=== PATIENT | male | born 1975 | race Caucasian/White ===

== ENCOUNTER → 2017-02-06 | Outpatient (CLI) | payer OTHER ==
--- NOTE | 2017-02-06 12:55 | ECHOF ---
Referral Reason:R06.09 dyspnea MEASUREMENTS -------- HEIGHT: 188.0 cm WEIGHT: 93.9 kg BP: 128/87 RVIDd: 3.3 cm (< 3.3) IVSd: 1.1 cm (0.6 - 1.1) LVIDd: 4.2 cm (3.9 - 5.3) LVPWd: 1.1 cm (0.6 - 1.1) EDV(Teich): 77 ml IVSs: 1.6 cm LVIDs: 3.0 cm LVPWs: 1.5 cm %IVS Thck: 47 % ESV(Teich): 34 ml EF(Teich): 56 % %FS: 29 % SV(Teich): 43 ml LA Diam: 3.3 cm (2.7 - 3.8) LALs A4C: 4.3 cm LAAs A4C: 12.3 cm LAESV A-L A4C: 30 ml LAESV MOD A4C: 28 ml LALs A2C: 5.1 cm LAAs A2C: 16.7 cm LAESV A-L A2C: 47 ml LAESV MOD A2C: 45 ml LAESV(A-L): 41 ml LAESV Index (A-L): 18.38 ml/m Ao Diam: 3.7 cm (2.0 - 3.7) AV Cusp: 2.4 cm (1.5 - 2.6) MV EXCURSION: 21.866 mm (> 18.000) MV EF SLOPE: 97 mm/s (70 - 150) EPSS: 0.5 cm MV E Sude[place]: 0.80 m/s MV DecT: 139 ms MV Dec [place]: 5.8 m/s MV A Sudeep: 0.90 m/s MV E/A Ratio: 0.90 MV PHT: 40 ms E/E': 9.48 E': 0.08 m/s AV Vmax: 1.10 m/s AV maxP.86 mmHg TR Vmax: 2.21 m/s TR maxP.48 mmHg RAP: 5.00 mmHg RVSP: 24.48 mmHg FINDINGS -------- Sinus rhythm. This was a technically good study. The left ventricular size is normal. There is borderline concentric left ventricular hypertrophy. Overall left ventricular systolic function is normal with, an EF between 60 - 65 %. The right ventricle is mildly enlarged. Normal LA size by volume 22+/-6 ml/m2. The right atrium is normal in size. The aortic valve is trileaflet and appears structurally normal. There is trace mitral regurgitation. The tricuspid valve appears structurally normal. There is no pulmonic regurgitation present. The aortic root is dilated measuring 3.7cm. Normal inferior vena cava with normal inspiratory collapse consistent with estimated right atrial pressure of 5 mmHg. There is no pericardial effusion. CONCLUSIONS -------- 1. Sinus rhythm. 2. There is trace mitral regurgitation. 3. The tricuspid valve appears structurally normal. 4. There is no pulmonic regurgitation present. 5. The aortic root is dilated measuring 3.7cm. 6. Normal inferior vena cava with normal inspiratory collapse consistent with estimated right atrial pressure of 5 mmHg. 7. There is no pericardial effusion. 8. This was a technically good study. 9. The left ventricular size is normal. 10. There is borderline concentric left ventricular hypertrophy. 11. Overall left ventricular systolic function is normal with, an EF between 60 - 65 %. 12. The right ventricle is mildly enlarged. 13. Normal LA size by volume 22+/-6 ml/m2. 14. The right atrium is normal in size. 15. The aortic valve is trileaflet and appears structurally normal. PROGRAM DIRECTOR/MUSIC DIRECTOR: Collette Gtz RDCS
--- NOTE | 2017-02-06 15:54 | EST ---
EXERCISE STRESS Date of Service: 02/06/2017 AGE:: 41 SEX:: Male. HT:: 74" WT:: 207 PROTOCOL:: Asa STAGE:: IV DURATION OF EXERCISE:: 10 minutes HEART RATE REST:: 82 BLOOD PRESSURE REST:: 128/87 MAXIMUM HEART RATE ACHIEVED:: 158 MAXIMUM BLOOD PRESSURE:: 183/95 85% MPHR:: 150 100% MPHR:: 177 METS:: 11.7 INDICATIONS:: Dyspnea. CLINICAL INFORMATION:: The test is being done to evaluate cardiac status. STRESS DATA: Baseline EKG showed a sinus rhythm with normal WA interval and QRS duration. Blood pressure at rest is 128/87 with a pulse rate of 82. The test is being done to evaluate symptoms of chest pain and shortness of breath and palpitations. Patient walked on the Asa protocol for 10 minutes achieving a maximum heart rate of 158 with a blood pressure of 183/95. EKGs taken during and after exercise did not reveal any significant changes from the baseline. FINAL IMPRESSION: 1. Negative stress test. 2. Patient did not experience any chest pain. 3. Good exercise capacity. 4. No arrhythmias were detected. MMODL / IJN: [id number] /
== END ==
LOC: RADNMMAIN 10:21
PROVIDERS: ATTEND Family Medicine
DX: R06.09 Other forms of dyspnea (principal)
CPT/HCPCS: 93017; 93306

== ENCOUNTER 2017-05-06 19:08 | Emergency (ER) | payer OTHER ==
[2017-05-06] MEDS ORDERED: ONDANSETRON 4 MG/2 ML VIAL IVP STA (20:01)
[2017-05-06] MEDS ORDERED: SODIUM CHLORIDE 0.9% 1,000 ML IV STA (20:01)
[2017-05-06] MEDS ORDERED: KETOROLAC 30 MG/ML 1 ML VIAL IVP STA (20:01)
[2017-05-06] MEDS ORDERED: HYDROmorphone 1 MG/ML 1 ML SYRINGE IVP STA (20:01)
--- NOTE | 2017-05-06 20:11 | ED ---
General Adult HPI - General Chief complaint: Abdominal Pain Stated complaint: Abd Pain Time Seen by Provider: 05/06/17 19:54 Source: patient, RN notes reviewed Mode of arrival: ambulatory Limitations: no limitations - History of Present Illness Initial comments: 42-year-old male presents to the emergency Department chief complaint of left flank pain. Started suddenly about 5 hours ago. He states that nausea without vomiting. History of kidney stones and states this feels much like this. There is been no cough cold symptoms. There is been no other symptoms with this. He denies any blood in the urine states that there has been no dysuria. He states is exactly like his typical kidney stones. He was concerned due to the symptoms the fact he cannot pain. He should be seen. Patient denies any recent fever, chills, shortness of breath, chest pain, vomiting, numbness or tingling, dysuria or hematuria, constipation or diarrhea, headaches or visual changes, or any other current symptoms. - Related Data Home Medications Medication Instructions Recorded Confirmed Montelukast [Singulair] 10 mg PO HS 01/26/16 05/06/17 Metoprolol Succinate [Toprol XL] 25 mg PO HS 05/06/17 05/06/17 Previous Rx's Medication Instructions Recorded Hydrocodone/Acetaminophen [[place] 1 each PO Q6HR PRN #20 tab 05/06/17 5-325] Ketorolac [Toradol] 10 mg PO Q6HR #20 tab 05/06/17 Ondansetron Odt [Zofran ODT] 4 mg PO Q8HR PRN #20 tab 05/06/17 Tamsulosin [Flomax] 0.4 mg PO DAILY #5 cap 05/06/17 Allergies Allergy/AdvReac Type Severity Reaction Status Date / Time Penicillins Allergy Rash/Hives Verified 05/06/17 20:01 Review of Systems ROS Statement: Those systems with pertinent positive or pertinent negative responses have been documented in the HPI. ROS Other: All systems not noted in ROS Statement are negative. Past Medical History Past Medical History: No Reported History Additional Past Medical History / Comment(s): LEFT THUMB INJURY, History of Any Multi-Drug Resistant Organisms: None Reported Past Surgical History: Appendectomy Additional Past Surgical History / Comment(s): HODA TUBES IN EARS Past Anesthesia/Blood Transfusion Reactions: No Reported Reaction Past Psychological History: No Psychological Hx Reported Smoking Status: Never smoker Past Alcohol Use History: None Reported Past Drug Use History: None Reported General Exam - General Exam Comments Initial Comments: General: The patient is awake and alert, in no distress, and does not appear acutely ill. Eye: Pupils are equal, round and reactive to light. Ears, nose, mouth and throat: There are moist mucous membranes. Neck: The neck is supple, there is no tenderness. Cardiovascular: There is a regular rate and rhythm. No murmur, rub or gallop is appreciated. Respiratory: Lungs are clear to auscultation, respirations are non-labored, breath sounds are equal. No wheezes, stridor, rales, or rhonchi. Gastrointestinal: Soft, non-distended, non-tender abdomen without masses or organomegaly noted. There is no rebound or guarding present. No CVA tenderness. Bowel sounds are unremarkable. Back: There is no tenderness to palpation in the midline. There is no obvious deformity. No rashes noted. Musculoskeletal: Normal ROM, no tenderness, There is no pedal edema. There is no calf tenderness or swelling. Sensation intact. Pulses equal bilaterally 2+. Neurological: CN II-XII intact, There are no obvious motor or sensory deficits. Coordination appears grossly intact. Speech is normal. Skin: Skin is warm and dry and no rashes or lesions are noted. Psychiatric: Cooperative, appropriate mood & affect, normal judgment. Limitations: no limitations Course Vital Signs 05/06/17 05/06/17 19:18 21:28 Temperature 99.0 F 98.4 F Pulse Rate 57 L 78 Respiratory 20 16 Rate Blood Pressure 155/80 124/61 O2 Sat by Pulse 94 L 97 Oximetry Medical Decision Making - Medical Decision Making 42-year-old male presents emergency department with chief complaint of left flank pain. At this time patient does appear to have a calculus in the left ureter. This and we discussed the patient pain medication nausea medication for home. We did discuss follow-up return parameters and all their questions. They stated they understood and management this plan. All questions have been answered. This time they will be discharged. - Lab Data Result diagrams: 05/06/17 20:25 05/06/17 20:25 Lab Results 05/06/17 05/06/17 05/06/17 Range/Units 20:25 20:25 20:25 WBC 11.8 H (3.8-10.6) k/uL RBC 5.36 (4.30-5.90) m/uL Hgb 16.2 (13.0-17.5) gm/dL Hct 47.9 (39.0-53.0) % MCV 89.4 (80.0-100.0) fL MCH 30.2 (25.0-35.0) pg MCHC 33.8 (31.0-37.0) g/dL RDW 14.1 (11.5-15.5) % Plt Count 256 (150-450) k/uL Neutrophils % 81 % Lymphocytes % 11 % Monocytes % 6 % Eosinophils % 1 % Basophils % 1 % Neutrophils # 9.6 H (1.3-7.7) k/uL Lymphocytes # 1.3 (1.0-4.8) k/uL Monocytes # 0.7 (0-1.0) k/uL Eosinophils # 0.1 (0-0.7) k/uL Basophils # 0.1 (0-0.2) k/uL Sodium 142 (137-145) mmol/L Potassium 4.2 (3.5-5.1) mmol/L Chloride 105 (98-107) mmol/L Carbon Dioxide 26 (22-30) mmol/L Anion Gap 11 mmol/L BUN 21 H (9-20) mg/dL Creatinine 1.02 (0.66-1.25) mg/dL Est GFR (MDRD) Af Amer >60 (>60 ml/min/1.73 sqM) Est GFR (MDRD) Non-Af >60 (>60 ml/min/1.73 sqM) Glucose 124 H (74-99) mg/dL Plasma Lactic Acid Jose J 1.9 (0.7-2.0) mmol/L Calcium 10.1 (8.4-10.2) mg/dL Total Bilirubin 0.7 (0.2-1.3) mg/dL AST 23 (17-59) U/L ALT 35 (21-72) U/L Alkaline Phosphatase 76 (38-126) U/L Total Protein 8.3 H (6.3-8.2) g/dL Albumin 4.6 (3.5-5.0) g/dL Amylase 38 (30-110) U/L Lipase 34 (23-300) U/L Urine Color Urine Appearance (Clear) Urine pH (5.0-8.0) Ur Specific [place] (1.001-1.035) Urine Protein (Negative) Urine Glucose (UA) (Negative) Urine Ketones (Negative) Urine Blood (Negative) Urine Nitrite (Negative) Urine Bilirubin (Negative) Urine Urobilinogen (<2.0) mg/dL Ur Leukocyte Esterase (Negative) Urine RBC (0-5) /hpf Urine WBC (0-5) /hpf Ur Squamous Epith Cells (0-4) /hpf Urine Mucus (None) /hpf 05/06/17 Range/Units 21:32 WBC (3.8-10.6) k/uL RBC (4.30-5.90) m/uL Hgb (13.0-17.5) gm/dL Hct (39.0-53.0) % MCV (80.0-100.0) fL MCH (25.0-35.0) pg MCHC (31.0-37.0) g/dL RDW (11.5-15.5) % Plt Count (150-450) k/uL Neutrophils % % Lymphocytes % % Monocytes % % Eosinophils % % Basophils % % Neutrophils # (1.3-7.7) k/uL Lymphocytes # (1.0-4.8) k/uL Monocytes # (0-1.0) k/uL Eosinophils # (0-0.7) k/uL Basophils # (0-0.2) k/uL Sodium (137-145) mmol/L Potassium (3.5-5.1) mmol/L Chloride (98-107) mmol/L Carbon Dioxide (22-30) mmol/L Anion Gap mmol/L BUN (9-20) mg/dL Creatinine (0.66-1.25) mg/dL Est GFR (MDRD) Af Amer (>60 ml/min/1.73 sqM) Est GFR (MDRD) Non-Af (>60 ml/min/1.73 sqM) Glucose (74-99) mg/dL Plasma Lactic Acid Jose J (0.7-2.0) mmol/L Calcium (8.4-10.2) mg/dL Total Bilirubin (0.2-1.3) mg/dL AST (17-59) U/L ALT (21-72) U/L Alkaline Phosphatase (38-126) U/L Total Protein (6.3-8.2) g/dL Albumin (3.5-5.0) g/dL Amylase (30-110) U/L Lipase (23-300) U/L Urine Color Light Red Urine Appearance Clear (Clear) Urine pH 6.0 (5.0-8.0) Ur Specific [place] 1.021 (1.001-1.035) Urine Protein 1+ H (Negative) Urine Glucose (UA) Negative (Negative) Urine Ketones Trace H (Negative) Urine Blood Large H (Negative) Urine Nitrite Negative (Negative) Urine Bilirubin Negative (Negative) Urine Urobilinogen <2.0 (<2.0) mg/dL Ur Leukocyte Esterase Negative (Negative) Urine RBC >182 H (0-5) /hpf Urine WBC 7 H (0-5) /hpf Ur Squamous Epith Cells <1 (0-4) /hpf Urine Mucus Few H (None) /hpf - Radiology Data Radiology results: report reviewed, image reviewed Disposition Clinical Impression: Left ureteral calculus Disposition: HOME SELF-CARE Condition: Stable Instructions: Kidney Stones (ED) Additional Instructions: Please use medication as discussed. Please follow up with family doctor if symptoms have not improved over the next two days. Please return to the emergency room if your symptoms increase or worsen or for any other concerns. Prescriptions: Hydrocodone/Acetaminophen [[place] 5-325] 1 each PO Q6HR PRN #20 tab PRN Reason: Pain Ketorolac [Toradol] 10 mg PO Q6HR #20 tab Ondansetron Odt [Zofran ODT] 4 mg PO Q8HR PRN #20 tab PRN Reason: Nausea Tamsulosin [Flomax] 0.4 mg PO DAILY #5 cap Referrals: Alejandra Hightower DO [Primary Care Provider] - 1-2 days Time of Disposition: 21:58
[2017-05-06] MEDS ORDERED: HYDROmorphone 0.5 MG/0.5 ML SYRINGE IVP STA (20:34)
[2017-05-06 20:40] LABS: Basophils # (A) 0.1 k/uL (0-0.2); Basophils % (A) 1 %; CH 30.4; CHCM 34.2; Eosinophils # (A) 0.1 k/uL (0-0.7); Eosinophils % (A) 1 %; HCT 47.9 % (39.0-53.0); HDW 2.44; HGB 16.2 gm/dL (13.0-17.5); Luc # (Auto) 0.09; Luc % (Auto) 1; Lymphocytes # (A) 1.3 k/uL (1.0-4.8); Lymphocytes % (A) 11 %; MCH 30.2 pg (25.0-35.0); MCHC 33.8 g/dL (31.0-37.0); MCV 89.4 fL (80.0-100.0); Mean Platelet Volume 7.7; Monocytes # (A) 0.7 k/uL (0-1.0); Monocytes % (A) 6 %; Neutrophils # (A) 9.6 k/uL (1.3-7.7); Neutrophils % (A) 81 %; RBC 5.36 m/uL (4.30-5.90); RDW 14.1 % (11.5-15.5); WBC 11.8 k/uL (3.8-10.6); WBC (Perox) 12.03
[2017-05-06 20:54] LABS: ALT 35 U/L (21-72); AST 23 U/L (17-59); Alkaline Phosphatase 76 U/L (38-126); Amylase 38 U/L (30-110); Anion Gap 11 mmol/L; Blood Urea Nitrogen 21 mg/dL (9-20); Calcium 10.1 mg/dL (8.4-10.2); Carbon Dioxide 26 mmol/L (22-30); Chloride 105 mmol/L (98-107); Glucose 124 mg/dL (74-99); Non-African American GFR(MDRD) >60 (>60 ml/min/1.73 sqM); Potassium 4.2 mmol/L (3.5-5.1); Sodium 142 mmol/L (137-145); Total Bilirubin 0.7 mg/dL (0.2-1.3); Total Protein 8.3 g/dL (6.3-8.2)
--- NOTE | 2017-05-06 21:20 | CT ---
EXAMINATION TYPE: CT abdomen pelvis wo con DATE OF EXAM: 05/06/2017 COMPARISON: 01/26/2016 HISTORY: Patient complains of left flank pain and dysuria. Patient has a history of prior stones. CT DLP: 417.4 mGycm Automated exposure control for dose reduction was used. TECHNIQUE: Helical acquisition of images was performed from the lung bases through the pelvis. FINDINGS: The lung bases are clear. There is no pleural effusion. The liver spleen pancreas gallbladder appear normal. Bile ducts are not dilated. There is no adrenal mass. There is a 4 mm calculus in the interpolar right kidney. There is some full ness of the left ureter. There is a 3 mm calcification on image 129 that is probably a small stone in the lower left ureter. There is mild fullness of the left renal pelvis. There is no retroperitoneal adenopathy. I see no intestinal wall thickening. There are no dilated loops. Bladder distends smoothly. There is no pelvic mass. There is no ascites. I see no bony destructive process. There is degenerative disc sp erendira narrowing at L5-S1. Appendix is not seen. IMPRESSION: SMALL RIGHT RENAL CALCULUS. THERE IS CLEARING OF THE STONE IN THE LOWER RIGHT URETER COMPARED TO OLD EXAM. THERE IS NEW MILD LEFT-SIDED HYDRONEPHROSIS AND HYDROURETER AND A TINY STONE IN THE DISTAL LEFT URETER.
[2017-05-06 21:30] VITALS: TEMP 98.4
[2017-05-06 21:50] LABS: Appearance,Urine Clear (Clear); Bilirubin,Urine Negative (Negative); Glucose,Urine (UA) Negative (Negative); Ketones,Urine Trace (Negative); Leukocyte Esterase,Urine Negative (Negative); Mucus,Urine Few /hpf; Nitrite,Urine Negative (Negative); Particle Count 5077; Protein,Urine 1+ (Negative); RBC,Urine >182 /hpf (0-5); Specific Gravity,Urine 1.021 (1.001-1.035); Squamous Epithelial Cell,Urine <1 /hpf (0-4); UA Billing (MACRO vs. MICRO) MICRO; Urobilinogen,Urine <2.0 mg/dL (<2.0); WBC,Urine 7 /hpf (0-5)
[2017-05-06 22:19] VITALS: BP 119/69; PULSE 67; RESP 18
== END 2017-05-06 22:17 | disposition home or self-care (01) ==
LOC: EC 19:08
DX: N20.1 Calculus of ureter (principal); Z79.899 Other long term (current) drug therapy; Z88.0 Allergy status to penicillin; Z90.49 Acquired absence of other specified parts of digestive tract
CPT/HCPCS: 36415; 80053; 82150; 83605; 83690; 85025; 81001; 87040; 87086; 74176; 99284; 96374; 96375 ×2; 96361 ×2; J2405; J1885; J1170

== ENCOUNTER → 2017-05-09 | Outpatient (CLI) | payer OTHER | END | disposition home or self-care (01) | LOC: LABPRL 12:25 | PROVIDERS: ATTEND Physician Assistant Medical | DX: N20.0 Calculus of kidney (principal) | CPT/HCPCS: 82365 ==

== ENCOUNTER 2018-02-23 21:29 | Emergency (ER) | payer OTHER ==
[2018-02-23 21:38] VITALS: RESP 20
--- NOTE | 2018-02-23 23:00 | XR ---
EXAMINATION TYPE: XR hand complete LT DATE OF EXAM: 02/23/2018 COMPARISON: 09/12/2014 HISTORY: Laceration TECHNIQUE: 3 views FINDINGS: I see no fracture nor dislocation. Joint spaces are normal. There are no pathologic calcifi cations. There are small metallic densities at the tip of the distal phalanx of the thumb. There is s ome amputation deformity of the tuft of the distal phalanx of the thumb. 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 No acute bony abnormality. No adverse change compared to old exam.
[2018-02-23] MEDS ORDERED: DIPH,PERTUS(ACELL)TETVAC-LF 0.5 ML VIAL IM ONE (23:04)
--- NOTE | 2018-02-23 23:12 | ED ---
Wound/Laceration HPI - General Source: patient, family, RN notes reviewed Mode of arrival: ambulatory Limitations: no limitations <Eric Shin - Last Filed: 02/23/18 23:08> <Sierra Ford - Last Filed: 02/24/18 22:56> - General Chief Complaint: Wound/Laceration Stated Complaint: thumb lac Time Seen by Provider: 02/23/18 21:45 - History of Present Illness Initial Comments: 43-year-old male presents emergency Department chief complaint of left thumb laceration. Patient states that happened approximately at 4:30 PM today at home. He states he was working a piece of metal cut his thumb. Patient states bleeding continue taking emergency department. Patient is unsure when his last tetanus was. Patient states he has full range of motion. He has had a traumatic injury the past which has altered some sensation and states that he does have some areas of numbness which is normal for him. (Eric Shin) - Related Data Home Medications Medication Instructions Recorded Confirmed Montelukast [Singulair] 10 mg PO HS 01/26/16 02/23/18 Metoprolol Succinate [Toprol XL] 25 mg PO HS 05/06/17 02/23/18 Allergies Allergy/AdvReac Type Severity Reaction Status Date / Time Penicillins Allergy Rash/Hives Verified 02/23/18 23:14 Review of Systems ROS Other: All systems not noted in ROS Statement are negative. <Eric Shin - Last Filed: 02/23/18 23:08> ROS Other: All systems not noted in ROS Statement are negative. <Sierra Ford - Last Filed: 02/24/18 22:56> ROS Statement: Those systems with pertinent positive or pertinent negative responses have been documented in the HPI. Past Medical History Past Medical History: No Reported History Additional Past Medical History / Comment(s): LEFT THUMB INJURY, History of Any Multi-Drug Resistant Organisms: None Reported Past Surgical History: Appendectomy Additional Past Surgical History / Comment(s): HODA TUBES IN EARS Past Anesthesia/Blood Transfusion Reactions: No Reported Reaction Past Psychological History: No Psychological Hx Reported Smoking Status: Never smoker Past Alcohol Use History: None Reported Past Drug Use History: None Reported <Eric Shin - Last Filed: 02/23/18 23:08> General Exam Limitations: no limitations General appearance: alert, in no apparent distress Respiratory exam: Present: normal lung sounds bilaterally. Absent: respiratory distress, wheezes, rales, rhonchi, stridor Cardiovascular Exam: Present: regular rate, normal rhythm, normal heart sounds. Absent: systolic murmur, diastolic murmur, rubs, gallop, clicks Extremities exam: Present: other (Left thumb there is a 1 cm laceration towards the MCP region full range of motion neurovascular intact) <Eric Shin - Last Filed: 02/23/18 23:08> Vital Signs 02/23/18 02/23/18 21:33 23:24 Temperature 98.7 F 98.3 F Pulse Rate 78 68 Respiratory 20 20 Rate Blood Pressure 133/76 122/56 O2 Sat by Pulse 99 99 Oximetry Procedures - Laceration Laceration #1 Consent Obtained: verbal consent Indication: laceration Site: hand (Left first digit) Size (cm): 1 Description: linear Depth: simple, single layer Anesthetic Used: lidocaine 1%, without epi Anesthesia Technique: local infiltration Amount (mls): 4 Pre-repair: wound explored, irrigated extensively, deep structures intact Type of Sutures: nylon Size of Sutures: 4-0 Number of Sutures: 3 Technique: simple, interrupted Patient Tolerated Procedure: well, no complications <Eric Shin - Last Filed: 02/23/18 23:08> Medical Decision Making <Eric Shin - Last Filed: 02/23/18 23:08> <Sierra Ford - Last Filed: 02/24/18 22:56> - Medical Decision Making 43-year-old male present emergency from for left thumb laceration. This was closed using 3 sutures. Patient did have x-ray which showed foreign body though not at the level of the laceration. Patient will be discharged with close follow-up and return parameters were discussed. (Eric Shin) I was available for consultation in the emergency department. The history and physical exam were done by the midlevel provider. I was consulted for this patient's care. I reviewed the case with the midlevel provider and based on their presentation of the patient, I agree with the assessment, medical decision making and plan of care as documented. (Sierra Ford) Disposition Is patient prescribed a controlled substance at d/c from ED?: No Time of Disposition: 23:11 <Eric Shin - Last Filed: 02/23/18 23:08> <Sierra Ford - Last Filed: 02/24/18 22:56> Clinical Impression: Laceration of left thumb Disposition: HOME SELF-CARE Condition: Stable Instructions: Care For Your Stitches (ED), Finger Laceration (ED) Additional Instructions: Please return to the Emergency Department if symptoms worsen or any other concerns. Have sutures removed in 10 days. Referrals: Alejandra Hightower DO [Primary Care Provider] - 1-2 days
[2018-02-23 23:25] VITALS: BP 122/56; PULSE 68; TEMP 98.3
== END 2018-02-23 23:25 | disposition home or self-care (01) ==
LOC: EC 21:29
DX: S61.012A Laceration without foreign body of left thumb without damage to nail, initial encounter (principal); Z23 Encounter for immunization; Z79.899 Other long term (current) drug therapy; Z88.0 Allergy status to penicillin; W45.8XXA Other foreign body or object entering through skin, initial encounter; Y93.89 Activity, other specified
CPT/HCPCS: 12001; 90471; 90715; 99283

== ENCOUNTER 2018-07-27 16:15 | Emergency (ER) | payer OTHER ==
[2018-07-27 18:52] LABS: Basophils % (A) 0 %; Eosinophils # (A) 0.1 k/uL (0-0.7); Eosinophils % (A) 1 %; HCT 48.3 % (39.0-53.0); HGB 16.1 gm/dL (13.0-17.5); Lymphocytes # (A) 0.9 k/uL (1.0-4.8); Lymphocytes % (A) 9 %; MCH 30.3 pg (25.0-35.0); MCHC 33.3 g/dL (31.0-37.0); MCV 90.8 fL (80.0-100.0); Mean Platelet Volume 7.4; Monocytes # (A) 0.7 k/uL (0-1.0); Monocytes % (A) 6 %; Neutrophils # (A) 8.8 k/uL (1.3-7.7); Neutrophils % (A) 84 %; Platelet Count 205 k/uL (150-450); RBC 5.32 m/uL (4.30-5.90); RDW 12.8 % (11.5-15.5); WBC 10.5 k/uL (3.8-10.6)
[2018-07-27 18:55] LABS: Appearance,Urine Clear (Clear); Bacteria,Urine Rare /hpf; Bilirubin,Urine Negative (Negative); Blood,Urine Moderate (Negative); Color,Urine Yellow; Glucose,Urine (UA) Negative (Negative); Ketones,Urine Negative (Negative); Leukocyte Esterase,Urine Negative (Negative); Mucus,Urine Many /hpf; Nitrite,Urine Negative (Negative); PH, Urine 5.5 (5.0-8.0); Protein,Urine Trace (Negative); RBC,Urine 89 /hpf (0-5); Specific Gravity,Urine 1.015 (1.001-1.035); Squamous Epithelial Cell,Urine <1 /hpf (0-4); Urobilinogen,Urine <2.0 mg/dL (<2.0); WBC,Urine 4 /hpf (0-5)
[2018-07-27 19:01] LABS: Albumin 4.2 g/dL (3.5-5.0); Calcium 9.7 mg/dL (8.4-10.2); Potassium 4.5 mmol/L (3.5-5.1); Total Protein 7.6 g/dL (6.3-8.2)
[2018-07-27] MEDS ORDERED: SODIUM CHLORIDE 0.9% 1,000 ML IV ONE (19:03)
[2018-07-27] MEDS ORDERED: HYDROmorphone 0.5 MG/0.5 ML SYRINGE IVP STA (19:03)
[2018-07-27] MEDS ORDERED: KETOROLAC 30 MG/ML 1 ML VIAL IVP STA (19:03)
[2018-07-27] MEDS ORDERED: ONDANSETRON 4 MG/2 ML VIAL IVP STA (19:03)
--- NOTE | 2018-07-27 19:07 | ED ---
General Adult HPI - General Chief complaint: Urogenital Stated complaint: Kidney stones Time Seen by Provider: 07/27/18 18:58 Source: patient Mode of arrival: ambulatory Limitations: no limitations - History of Present Illness Initial comments: 43-year-old male patient presents to the emergency department today for evaluation of right flank pain. Patient states feels similar to when he had kidney stones in the past. Patient states that his urine seemed to be thicker than usual so it concerned him he presented here for further evaluation. Patient states he did take Flomax and pain medicine from his previous kidney stone at home, did help somewhat. States that he is having pain currently at a 6 out of 10 on the pain scale. Describes a sharp stabbing pain to the right flank. States he is nauseated but has not vomited. Denies any fevers or chills with this. States he has had appendectomy in the past and no other abdominal surgeries. Denies fevers or chills. Patient denies any recent rash, shortness breath, chest pain, diarrhea, constipation, back pain, numbness, tingling, dizziness, weakness, headache, visual changes, or any other complaints. - Related Data Home Medications Medication Instructions Recorded Confirmed Montelukast [Singulair] 10 mg PO HS 01/26/16 07/27/18 Metoprolol Succinate [Toprol XL] 25 mg PO HS 05/06/17 07/27/18 Ketorolac [Toradol] 10 mg PO ONCE PRN 07/27/18 07/27/18 Tamsulosin [Flomax] 0.4 mg PO ONCE 07/27/18 07/27/18 Previous Rx's Medication Instructions Recorded Hydrocodone/Acetaminophen [Amalia 1 tab PO Q6HR PRN #12 tab 07/27/18 5-325] Ondansetron [Zofran ODT] 4 mg PO Q8HR PRN #10 tab 07/27/18 Tamsulosin HCl [Flomax] 0.4 mg PO DAILY #7 cap 07/27/18 Allergies Allergy/AdvReac Type Severity Reaction Status Date / Time Penicillins Allergy Rash/Hives Verified 07/27/18 19:06 Review of Systems ROS Statement: Those systems with pertinent positive or pertinent negative responses have been documented in the HPI. ROS Other: All systems not noted in ROS Statement are negative. Past Medical History Past Medical History: No Reported History Additional Past Medical History / Comment(s): LEFT THUMB INJURY, History of Any Multi-Drug Resistant Organisms: None Reported Past Surgical History: Appendectomy Additional Past Surgical History / Comment(s): HODA TUBES IN EARS Past Anesthesia/Blood Transfusion Reactions: No Reported Reaction Past Psychological History: No Psychological Hx Reported Smoking Status: Never smoker Past Alcohol Use History: None Reported Past Drug Use History: None Reported General Exam Limitations: no limitations General appearance: alert, in no apparent distress, other (Social well-developed , well-nourished adult male patient in no acute distress. Vital signs upon presentation are temperature 98.5F, pulse 96, respirations 18, blood pressure 143/78, pulse ox 100% on room air.) Eye exam: Present: normal appearance, PERRL, EOMI. Absent: scleral icterus, conjunctival injection, periorbital swelling ENT exam: Present: normal exam, normal oropharynx, mucous membranes moist Respiratory exam: Present: normal lung sounds bilaterally. Absent: respiratory distress, wheezes, rales, rhonchi, stridor Cardiovascular Exam: Present: regular rate, normal rhythm, normal heart sounds. Absent: systolic murmur, diastolic murmur, rubs, gallop, clicks GI/Abdominal exam: Present: soft, normal bowel sounds. Absent: distended, tenderness, guarding, rebound, rigid Back exam: Present: normal inspection, CVA tenderness (R). Absent: CVA tenderness (L) Neurological exam: Present: alert, oriented X3, CN II-XII intact Psychiatric exam: Present: normal affect, normal mood Skin exam: Present: warm, dry, intact, normal color. Absent: rash Course Vital Signs 07/27/18 17:31 Temperature 98.5 F Pulse Rate 96 Respiratory 18 Rate Blood Pressure 143/78 O2 Sat by Pulse 100 Oximetry Medical Decision Making - Medical Decision Making 43-year-old male patient with past medical history significant for kidney stones presents to the emergency department today for evaluation of right flank pain. Physical examination did reveal some right CVA tenderness. Labs reviewed and did reveal mild elevation in BUN and creatinine. Urinalysis showed gross and microscopic blood. KUB x-ray was unremarkable. Patient has had CT abdomen and pelvis in the past showing multiple renal stones. Patient was given pain medication and IV fluids here in the department. Did discuss findings and results with the patient. Symptoms are consistent with kidney stone. He'll be discharged home to follow-up with his primary care physician and urology. He is instructed have repeat kidney function performed. He is instructed to increase fluids. He'll be given prescription for Amalia, Flomax, and Zofran. We will withhold NSAIDs at this time due to kidney function. Return parameters were discussed in detail. He verbalizes understanding and agrees with this plan. - Lab Data Result diagrams: 07/27/18 18:32 07/27/18 18:32 Lab Results 07/27/18 07/27/18 07/27/18 Range/Units 18:32 18:32 18:32 WBC 10.5 (3.8-10.6) k/uL RBC 5.32 (4.30-5.90) m/uL Hgb 16.1 (13.0-17.5) gm/dL Hct 48.3 (39.0-53.0) % MCV 90.8 (80.0-100.0) fL MCH 30.3 (25.0-35.0) pg MCHC 33.3 (31.0-37.0) g/dL RDW 12.8 (11.5-15.5) % Plt Count 205 (150-450) k/uL Neutrophils % 84 % Lymphocytes % 9 % Monocytes % 6 % Eosinophils % 1 % Basophils % 0 % Neutrophils # 8.8 H (1.3-7.7) k/uL Lymphocytes # 0.9 L (1.0-4.8) k/uL Monocytes # 0.7 (0-1.0) k/uL Eosinophils # 0.1 (0-0.7) k/uL Basophils # 0.0 (0-0.2) k/uL Sodium 138 (137-145) mmol/L Potassium 4.5 (3.5-5.1) mmol/L Chloride 103 (98-107) mmol/L Carbon Dioxide 27 (22-30) mmol/L Anion Gap 8 mmol/L BUN 24 H (9-20) mg/dL Creatinine 1.27 H (0.66-1.25) mg/dL Est GFR (CKD-EPI)AfAm 78 (>60 ml/min/1.73 sqM) Est GFR (CKD-EPI)NonAf 68 (>60 ml/min/1.73 sqM) Glucose 106 H (74-99) mg/dL Calcium 9.7 (8.4-10.2) mg/dL Total Bilirubin 1.0 (0.2-1.3) mg/dL AST 23 (17-59) U/L ALT 37 (21-72) U/L Alkaline Phosphatase 71 (38-126) U/L Total Protein 7.6 (6.3-8.2) g/dL Albumin 4.2 (3.5-5.0) g/dL Urine Color Yellow Urine Appearance Clear (Clear) Urine pH 5.5 (5.0-8.0) Ur Specific [place] 1.015 (1.001-1.035) Urine Protein Trace H (Negative) Urine Glucose (UA) Negative (Negative) Urine Ketones Negative (Negative) Urine Blood Moderate H (Negative) Urine Nitrite Negative (Negative) Urine Bilirubin Negative (Negative) Urine Urobilinogen <2.0 (<2.0) mg/dL Ur Leukocyte Esterase Negative (Negative) Urine RBC 89 H (0-5) /hpf Urine WBC 4 (0-5) /hpf Ur Squamous Epith Cells <1 (0-4) /hpf Urine Bacteria Rare H (None) /hpf Urine Mucus Many H (None) /hpf - Radiology Data Radiology results: report reviewed, image reviewed KUB x-ray of the abdomen is obtained. Report was reviewed in its entirety. Impression by Dr. Urbina shows nonacute abdomen. No change. Disposition Clinical Impression: Kidney stone on right side, Acute kidney injury Disposition: HOME SELF-CARE Condition: Good Instructions (If sedation given, give patient instructions): Acute Kidney Injury (DC), Kidney Stones (ED), How to Strain Your Urine (ED) Additional Instructions: Increase fluids. Take medications as directed. Follow-up with your primary care physician for recheck in 1-2 days. Have kidney function rechecked. Follow- up with urology for recheck as needed. Return to the emergency department immediately for any new, worsening, or concerning symptoms. Prescriptions: Hydrocodone/Acetaminophen [Amalia 5-325] 1 tab PO Q6HR PRN #12 tab PRN Reason: Pain Ondansetron [Zofran ODT] 4 mg PO Q8HR PRN #10 tab PRN Reason: Nausea Tamsulosin HCl [Flomax] 0.4 mg PO DAILY #7 cap Is patient prescribed a controlled substance at d/c from ED?: No Referrals: Aljeandra Hightower DO [Primary Care Provider] - 1-2 days Santo Rodríguez MD [STAFF PHYSICIAN] - 1-2 days Time of Disposition: 19:57
--- NOTE | 2018-07-27 19:46 | XR ---
Abdomen single view. History flank pain. Comparison 01/26/2016. FINDINGS: 2 views upright were obtained. Bowel gas pattern is normal. There is no sign of intestinal obstructio n or pneumoperitoneum. There are no pathologic calcifications over the kidneys. Fecal pattern is norm al. Lung bases are clear. IMPRESSION: Nonacute abdomen. No change.
[2018-07-27 20:32] VITALS: BP 128/83; PULSE 68; RESP 16; TEMP 98.3
== END 2018-07-27 20:43 | disposition home or self-care (01) ==
LOC: EC 16:15
DX: N17.9 Acute kidney failure, unspecified (principal); N20.0 Calculus of kidney; Z79.899 Other long term (current) drug therapy; Z88.0 Allergy status to penicillin; Z90.89 Acquired absence of other organs
CPT/HCPCS: 36415; 80053; 85025; 81001; 87086; 74018; 99284; 96374; 96375 ×2; 96361; J2405; J1885; J1170

== ENCOUNTER → 2018-08-13 | Outpatient (CLI) | payer OTHER ==
--- NOTE | 2018-08-17 18:49 | CT ---
EXAMINATION TYPE: CT abdomen pelvis wo con DATE OF EXAM: 08/13/2018 COMPARISON: 05/06/2017 HISTORY: 43-year-old male Right flank pain, history of stones. CT DLP: 591.5 mGycm. Automated exposure control for dose reduction was used. TECHNIQUE: Contiguous axial scanning of the abdomen and pelvis without IV contrast. Coronal and sagit naif reconstructions performed. FINDINGS: Heart normal size without pericardial effusion. 5 mm right middle lobe pulmonary nodule, axial image 2 is unchanged from 01/26/2016 compatible with a benign etiology. Lung bases otherwise clear without p leural effusion. A few scattered subcentimeter hypodense lesions in the liver inadequately characterized, likely small benign cysts. Gallbladder, adrenal glands, spleen, and pancreas show no gross abnormality by noncontrast CT. Punctate 1 to 2 mm nonobstructive left renal calculus. Vague cortical hypodensity lower pole right ki dney, axial image 75 was present previously suggesting an underlying benign cyst. There is very mild fullness to the right renal collecting system with the previously seen 4 mm right renal calculus now located in the distal right ureter. No dilated small bowel, free fluid, or free air. No mesenteric or retroperitoneal lymphadenopathy. Mild overall stool burden. No pericolonic inflammatory change. Bladder is nondistended. Pelvic phleboliths. Prostate gland measures 4.5 cm wide. No abnormal fluid c ollection in the pelvis or pelvic lymphadenopathy. Bones: Scattered benign bone island in the pelvis. Moderate to advanced degenerative disc disease L5- S1. Bulging disks mid to lower lumbar spine. Facet arthropathy lower lumbar spine. IMPRESSION: 1. A 5 mm distal right ureteral calculus without significant hydronephrosis. 2. Punctate 1 to 2 mm nonobstructive left renal calculus. 3. Mild prostatomegaly (4.5 cm wide).
== END | disposition home or self-care (01) ==
LOC: RADCTMAIN 15:50
PROVIDERS: ATTEND Nurse Practitioner Family
DX: N20.2 Calculus of kidney with calculus of ureter (principal); N40.0 Benign prostatic hyperplasia without lower urinary tract symptoms
CPT/HCPCS: 74176

== ENCOUNTER → 2021-05-01 | Outpatient (CLI) | payer OTHER ==
--- NOTE | 2021-05-01 16:25 | MR ---
EXAMINATION TYPE: MR lumbar spine wo con DATE OF EXAM: 05/01/2021 COMPARISON: CT 08/13/2018 HISTORY: Low back pain TECHNIQUE: Multiplanar, multisequence images of the lumbar spine were acquired without IV contrast. L1-L2: Normal disc appearance without desiccation. No herniation, protrusion or disc bulging. No ca nal stenosis is present. Foramina are patent bilaterally. L2-L3: Normal disc appearance without desiccation. No herniation, protrusion or disc bulging. No ca nal stenosis is present. Foramina are patent bilaterally. L3-L4: Normal disc appearance without desiccation. No herniation, protrusion or disc bulging. No ca nal stenosis is present. Foramina are patent bilaterally. L4-L5: Posterior broad-based disc bulge causes mild anterior mass effect on the thecal sac. There is some facet arthropathy change. Circumferential extension endplate disc complex encroaches minimally o n the inferior aspect of the neural foramen greater on the right than on the left L5-S1: There is some facet arthropathy changes. Circumferential extension of endplate disc complex re sults in bilateral foraminal encroachment. Posterior extension endplate disc complex may possibly con tact the proximal S1 nerve root right greater than left Lumbar segments are intact. No paraspinal masses are identified. Conus medullaris has a normal appe arance. Lumbar vertebral bodies show preserved height and alignment. There is no significant spinal s tenosis. There is endplate discogenic marrow signal change, loss of disc height signal is greatest at L5-S1. IMPRESSION: Degenerative disc disease and facet arthropathy as described with foraminal encroachment.
== END | disposition home or self-care (01) ==
LOC: RADMRIMAIN 15:11
PROVIDERS: ATTEND Orthopaedic Surgery
DX: M51.36 Other intervertebral disc degeneration, lumbar region (principal); M46.96 Unspecified inflammatory spondylopathy, lumbar region
CPT/HCPCS: 72148

== ENCOUNTER → 2022-09-16 | Outpatient (CLI) | payer OTHER ==
[2022-09-16 10:44] VITALS: BP 135/96; PULSE 89; RESP 18; TEMP 98.1
--- NOTE | 2022-09-16 16:28 | P.PAINPG ---
PQRS Measure Charge Sheet Comment: HISTORY OF PRESENT ILLNESS: 47 yr old male w at side as a referral from Dr Gramajo presents today w severe and chronic LBP for years secondary to DDD, spondylosis and facet arthropathy without myelopathy for evaluation. Pt states pain level is provoked at 6 /10 in intensity, constant, localized in the R lower lumbar spine, sore in character w shooting pain towards the BLEs. Pain is provoked by sitting for periods of 30 min or more, bending lifting. Pain is alleviated by medications (Aleve, Celebrex), physician guided home exercise regimen as directed by Dr Gramajo for the past year which he is currently doing, heated belt use, repositioning and rest. PMH: No Reported History PSH: Appendectomy, BL Ear Tubes SH: Negative x 3 FH: Non contributory All: See list Meds: See list REVIEW OF ORGAN SYSTEMS: CONSTITUTIONAL: No fevers or chills. No recent weight loss. NEUROLOGICAL: + numbness and tingling along the distal extremities. No seizure disorders or headaches. MUSCULOSKELETAL: + pain PSYCHIATRIC: Denies current depression or suicidal thoughts. Physical Examinations : Constitutional : Cooperative , not in acute distress . Neurologic : Cranial nerve II to XII intact. No focal neurological deficits. Psychiatric : alert & oriented x 3. Matching mood & appropriate affect. Judgment & insight intact. Musculoskeletal : Cervical Spine Motor strength in the deltoid and biceps: Normal right side. Normal Left side Motor strength biceps and the wrist extensors: Normal right side . Normal left side Motor strength in the triceps muscle: Normal right side. Normal left side Deep tendon reflexes: Normal at the biceps. Normal at Brachioradialis. Normal at triceps Vertebral body tenderness to deep palpation over Cervical facet loading test: positive bilaterally Spurling test: positive bilaterally Neck distraction test: positive bilaterally Katherine sign: positive bilaterally Lumbar spine Motor strength lower extremities ,thigh and legs 5/5 Right side , 5/5 Left side Deep tendon reflexes : Normal Knee Jerk. Normal Ankle Jerk Vertebral body tenderness over L5 Lumbar facet Loading Test: positive Right / positive Left Range of motion of the lumbar spine Flexion 30 degrees, extension 10 degrees Straight Leg Raise test: Left/ Right positive at degree Jayson test: positive right / positive left. Severe tenderness over the Sacroiliac joint on the Right / Left sides Gaenslen test: positive bilaterally Seated flexion test: positive bilaterally. Sacral spine : Severe tenderness over the Sacroiliac joint: right side / left side Range of motion: Flexion of the lumbar spine <60 degrees Range of motion: Extension of the lumbar spine <20 degrees Gaenslen's Test positive Derek's Test positive Jayson test: positive right side / left side Thigh Thrust Test Sacral Thrust Test Imaging: MRI without contrast of the lumbar spine from 05/01/21 reviewed Assessment/ Plan : Lumbar DDD Recommendation of LEILA L5-S1. May need a series of injections for optimal pain relief. Risks, benefits of procedure discussed and patient verbalized understanding. Admits to aspirin or anti- coagulant use or medical history of diabetes. Protocol for discontinuation/ continuation of medications robin procedure discussed. All questions answered. I have spent greater than 30 minutes on patient care today. Dr Tang was available by phone for the evaluation of this patient. The time was used to review the medical records including relevant urine studies and Prescription history (MAPs), review of the available imaging, evaluation and examination of the patient, coordination of care with the medical staff and if applicable referring physicians, as well as creation of the medical record PQRS Narrative: Smoking Status Never smoker Home Medications: Ambulatory Orders Montelukast [Singulair] 10 mg PO HS 01/26/16 Metoprolol Succinate [Toprol XL] 25 mg PO HS 05/06/17 Hydrocodone/Acetaminophen [[place] 5-325] 1 tab PO Q6HR PRN #12 tab 07/27/18 Ketorolac [Toradol] 10 mg PO ONCE PRN 07/27/18 Ondansetron [Zofran ODT] 4 mg PO Q8HR PRN #10 tab 07/27/18 Tamsulosin HCl [Flomax] 0.4 mg PO DAILY #7 cap 07/27/18 Tamsulosin [Flomax] 0.4 mg PO ONCE 07/27/18 Controlled Substance Measures - Controlled Substance Measures Is patient prescribed a controlled substance at discharge?: No
== END ==
LOC: PNWHC3 10:06
PROVIDERS: ATTEND Specialist
DX: M51.16 Intervertebral disc disorders with radiculopathy, lumbar region (principal); M47.26 Other spondylosis with radiculopathy, lumbar region; M48.061 Spinal stenosis, lumbar region without neurogenic claudication; Z88.0 Allergy status to penicillin
CPT/HCPCS: 99211

== ENCOUNTER 2023-06-14 13:00 | Emergency (ER) | payer OTHER ==
[2023-06-14 13:36] VITALS: RESP 18
--- NOTE | 2023-06-14 13:42 | ED ---
General Adult HPI - General Source: patient Mode of arrival: ambulatory Limitations: no limitations <Ady Reza - Last Filed: 06/14/23 16:30> - General Source: RN notes reviewed <Katelyn Lynch - Last Filed: 06/16/23 00:14> - General Chief complaint: Recheck/Abnormal Lab/Rx Stated complaint: Hemroid Bleeding, Sent by PCP - History of Present Illness Initial comments: Quick note: patient states he developed diarrhea on but on Friday he developed a hemorrhoid the size of a walnut. Patient states every time he goes to the bathroom it bleeds. He has tried Prep H and taken showers. He can't get it to go down. Verbally signed by Ady Reza PAC 06/14/22 1630 (Ady Reza) Note reviewed: This is a pleasant 48-year-old male with no significant past medical history who presents to the emergency department with a chief complaint of rectal pain. Patient reports that he has had BOUTS OF DIARRHEA 3 DAYS AGO. SHE REPORTS RESOLUTION OF DIARRHEA HOWEVER SHE HAS HAD INCREASED RECTAL PAIN. HE DOES DESCRIBE HAVING A RECTAL MASS THAT IS THE SIZE OF A WALNUT. HE REPORTS THAT EVERY TIME HE GOES TO THE BATHROOM HE WILL HAVE BLOOD IN THE TOILET BOWL AND IS CLINICALLY CLEAR. SHE HAS BEEN TRYING PREPARATION H INTAKE AND WAS EXCISED WITHOUT SYMPTOMATIC IMPROVEMENT. HE DENIES ANY KNOWN POSES A SENSATION OF PRECEDING EVENTS. HE DENIES ANY FEVERS, CHILLS. HE'S NEVER HAD THIS HAPPEN BEFORE. HE REPORTS THAT HE ATTEMPTED TO SEE HIS PCP REGARDING THIS HOWEVER THEY REFERRED HIM TO THE EMERGENCY DEPARTMENT. (Katelyn Lynch) - Related Data Home Medications Medication Instructions Recorded Confirmed Montelukast [Singulair] 10 mg PO HS 01/26/16 09/16/22 Metoprolol Succinate [Toprol XL] 25 mg PO HS 05/06/17 09/16/22 Ketorolac [Toradol] 10 mg PO ONCE PRN 07/27/18 09/16/22 Tamsulosin [Flomax] 0.4 mg PO ONCE 07/27/18 09/16/22 Previous Rx's Medication Instructions Recorded Hydrocodone/Acetaminophen [[place] 1 tab PO Q6HR PRN #12 tab 07/27/18 5-325] Ondansetron [Zofran ODT] 4 mg PO Q8HR PRN #10 tab 07/27/18 Tamsulosin HCl [Flomax] 0.4 mg PO DAILY #7 cap 07/27/18 Allergies Allergy/AdvReac Type Severity Reaction Status Date / Time Penicillins Allergy Rash/Hives Verified 06/14/23 13:32 Review of Systems ROS Other: All systems not noted in ROS Statement are negative. <Ady Reza - Last Filed: 06/14/23 16:30> ROS Other: All systems not noted in ROS Statement are negative. <Katelyn Lynch - Last Filed: 06/16/23 00:14> ROS Statement: Those systems with pertinent positive or pertinent negative responses have been documented in the HPI. Past Medical History Past Medical History: No Reported History Additional Past Medical History / Comment(s): LEFT THUMB INJURY, History of Any Multi-Drug Resistant Organisms: None Reported Past Surgical History: Appendectomy Additional Past Surgical History / Comment(s): HODA TUBES IN EARS Past Anesthesia/Blood Transfusion Reactions: No Reported Reaction Past Psychological History: No Psychological Hx Reported Smoking Status: Never smoker Past Alcohol Use History: None Reported Past Drug Use History: None Reported <Ady Reza - Last Filed: 06/14/23 16:30> General Exam Limitations: no limitations <Ady Reza - Last Filed: 06/14/23 16:30> <Katelyn Lynch - Last Filed: 06/16/23 00:14> - General Exam Comments Initial Comments: visual physical exam: well appearing, does appear to be in mild pain. (Ady Reza) General: Alert, in no acute distress Head: atraumatic normocephalic. Eyes PERRL, EOMI intact, mucous membranes moist Respiratory: Lungs clear to auscultation bilaterally Cardiovascular: Heart rate regular rate and rhythm Ractal: 3 cm protruding tissue with purulent discharge to right side of rectum. Markedly tender. No evidence of gross blood in the rectal vault Abdominal: Soft without guarding or rebound Extremities: Normal inspection with full range of motion and normal capillary refill Neuroogic: alert and oriented 3, CN II-XII intact, able to ambulate with steady gait Skin: warm dry and intact with normal color (Katelyn Lynch) Course <Katelyn Lynch - Last Filed: 06/16/23 00:14> Vital Signs 06/14/23 06/14/23 06/14/23 13:29 17:20 18:34 Temperature 98.4 F 98.9 F 98.7 F Pulse Rate 82 68 72 Respiratory 18 18 18 Rate Blood Pressure 128/65 138/72 134/81 O2 Sat by Pulse 97 96 97 Oximetry - Reevaluation(s) Reevaluation #1: 06/14/23 18:10 reevaluatedon results. Agreeable to plan for a consult to admit. He is agreeable [facility] to lack of GI coverage at this facility ([facility]) Reevaluation #2: 06/14/23 18:44 Case is discussed with [facility] who is currently on diversion due to high patient census. Patient is agreeale to the plan for transfer to [facility] ([facility]) Medical Decision Making - Lab Data Result diagrams: 06/14/23 15:44 06/14/23 15:44 <Ady Reza - Last Filed: 06/14/23 16:30> - Lab Data Result diagrams: 06/14/23 15:44 06/14/23 15:44 <Katelyn Lynch - Last Filed: 06/16/23 00:14> - Medical Decision Making Was pt. sent in by a medical professional or institution (AMADOR Becker, ADVICE NURSE, urgent care, hospital, or longterm...) When possible be specific @ -[No] Did you speak to anyone other than the patient for history (EMS, parent, family, police, friend...)? What history was obtained from this source @ -[No] Did you review nursing and triage notes (agree or disagree)? Why? @ -[I reviewed and agree with nursing and triage notes] Were old charts reviewed (outside hosp., previous admission, EMS record, old EKG, old radiological studies, urgent care reports/EKG's, longterm records)? Report findings @ -[No old charts were reviewed] Differential Diagnosis (chest pain, altered mental status, abdominal pain women, abdominal pain men, vaginal bleeding, weakness, fever, dyspnea, syncope, headache, dizziness, GI bleed, back pain, seizure, CVA, palpatations, mental health, musculoskeletal)? @ -[not applicable] EKG interpreted by me (3pts min.). @ -[As above] X-rays interpreted by me (1pt min.). @ -[None done] CT interpreted by me (1pt min.). @ CT reveals mild wall thickening to the rectal and sigmoid colon no evidence of perianal abscess U/S interpreted by me (1pt. min.). @ -[None done] What testing was considered but not performed or refused? (CT, X-rays, U/S, labs)? Why? @ -[None] What meds were considered but not given or refused? Why? @ -[None] Did you discuss the management of the patient with other professionals (professionals i.e. , PA, ADVICE NURSE, lab, RT, psych nurse, secondary social studies teacher, general assignment reporter, teacher, correctional probation officer, caser)? Give summary @ -Dictated to transfer patient to [facility] however they are on diversion due to high volumes Case is discussed with Dr. Vasquez, ED attending at [facility] who agrees and accepts the patient for ER to ER transfer Was smoking cessation discussed for >3mins.? @ -[No] Was critical care preformed (if so, how long)? @ -[No] Were there social determinants of health that impacted care today? How? (Homelessness, low income, unemployed, alcoholism, drug addiction, transportation, low edu. Level, literacy, decrease access to med. care, care home, rehab)? @ -[No] Was there de-escalation of care discussed even if they declined (Discuss DNR or withdrawal of care, Hospice)? DNR status @ -[No] What co-morbidities impacted this encounter? (DM, HTN, Smoking, COPD, CAD, Cancer, CVA, ARF, Chemo, Hep., AIDS, mental health diagnosis, sleep apnea, morbid obesity)? @ -[None] Was patient admitted / discharged? Hospital course, mention meds given and route, prescriptions, significant lab abnormalities, going to OR and other pertinent info. @ -Transfer to [facility]. This is a pleasant 48-year-old male who presents emergency Department with rectal pain. Patient afebrile. He is nontoxic and non-ill appearing. Rectal exam reveals Centimeter Erythematous Protrusion with Purulent Discharge. It Is Markedly Tender. It Does Not Appear to Be Tissue That I Can Reduce. Patient Had Laboratory Studies Which Were Unremarkable. CT Reveals Mild Colorectal Wall Thickening. I Discussed Results in Detail with the Patient Verbalized Understanding and Agreeable with the Plan for Transfer. Patient Will Be Transferred to [facility] for Further Evaluation and GI Management. Patient Transferred in Stable Condition via [facility]. Case Is Discussed with Dr. Alatorre, ED Attending Who Agrees with Plan. Undiagnosed new problem with uncertain prognosis? @ -[No] Drug Therapy requiring intensive monitoring for toxicity (Heparin, Nitro, Insulin, Cardizem)? @ -[No] Were any procedures done? @ -[No] Diagnosis/symptom? @ -Rectal Pain vs. Proctitis Acute, or Chronic, or Acute on Chronic? @ -Acute Uncomplicated (without systemic symptoms) or Complicated (systemic symptoms)? @ -Uncomplicated Side effects of treatment? @ -[No] Exacerbation, Progression, or Severe Exacerbation? @ -[No] Poses a threat to life or bodily function? How? (Chest pain, [place], [place], pneumonia, PE, COPD, DKA, ARF, appy, cholecystitis, CVA, Diverticulitis, Homicidal, Suicidal, threat to staff... and all critical care pts) @ -Moderate (Katelyn Lynch) - Lab Data Lab Results 06/14/23 06/14/23 06/14/23 Range/Units 15:44 15:44 15:44 WBC 7.9 (3.8-10.6) k/uL RBC 5.25 (4.30-5.90) m/uL Hgb 16.0 (13.0-17.5) gm/dL Hct 47.9 (39.0-53.0) % MCV 91.1 (80.0-100.0) fL MCH 30.4 (25.0-35.0) pg MCHC 33.4 (31.0-37.0) g/dL RDW 12.8 (11.5-15.5) % Plt Count 208 (150-450) k/uL MPV 7.7 Neutrophils % 66 % Lymphocytes % 23 % Monocytes % 8 % Eosinophils % 1 % Basophils % 1 % Neutrophils # 5.2 (1.3-7.7) k/uL Lymphocytes # 1.8 (1.0-4.8) k/uL Monocytes # 0.7 (0-1.0) k/uL Eosinophils # 0.1 (0-0.7) k/uL Basophils # 0.1 (0-0.2) k/uL Sodium 141 (137-145) mmol/L Potassium 4.0 (3.5-5.1) mmol/L Chloride 102 (98-107) mmol/L Carbon Dioxide 24 (22-30) mmol/L Anion Gap 15 mmol/L BUN 18 (9-20) mg/dL Creatinine 0.92 (0.66-1.25) mg/dL Est GFR (CKD-EPI)AfAm >90 (>60 ml/min/1.73 sqM) Est GFR (CKD-EPI)NonAf >90 (>60 ml/min/1.73 sqM) Glucose 97 (74-99) mg/dL Plasma Lactic Acid Jose J 1.1 (0.7-2.0) mmol/L Calcium 9.5 (8.4-10.2) mg/dL Disposition <Ady Reza - Last Filed: 06/14/23 16:30> Is patient prescribed a controlled substance at d/c from ED?: No Time of Disposition: 18:45 - Out of Hospital Transfer - Req. Specs Out of Hospital Transfer - Requested Specifics: Other Emergency Center ([facility]) <Katelyn Lynch - Last Filed: 06/16/23 00:14> Clinical Impression: Rectal pain, Proctitis Disposition: OTHER INSTITUTION NOT DEFINED Condition: Fair Referrals: Alejandra Hightower DO [Primary Care Provider] - 1-2 days
[2023-06-14] MEDS ORDERED: MORPHINE SULFATE 4 MG/ML SYRINGE IVP STA (15:44)
[2023-06-14] MEDS ORDERED: SODIUM CHLORIDE 0.9% 1,000 ML IV ONE (15:46)
[2023-06-14 16:02] LABS: Basophils # (A) 0.1 k/uL (0-0.2); Basophils % (A) 1 %; Eosinophils # (A) 0.1 k/uL (0-0.7); Eosinophils % (A) 1 %; HCT 47.9 % (39.0-53.0); Lymphocytes # (A) 1.8 k/uL (1.0-4.8); Lymphocytes % (A) 23 %; MCH 30.4 pg (25.0-35.0); MCHC 33.4 g/dL (31.0-37.0); MCV 91.1 fL (80.0-100.0); Mean Platelet Volume 7.7; Monocytes # (A) 0.7 k/uL (0-1.0); Monocytes % (A) 8 %; Neutrophils # (A) 5.2 k/uL (1.3-7.7); Neutrophils % (A) 66 %; Platelet Count 208 k/uL (150-450); RBC 5.25 m/uL (4.30-5.90); RDW 12.8 % (11.5-15.5); WBC 7.9 k/uL (3.8-10.6)
[2023-06-14 16:12] LABS: African American GFR (CKD) >90 (>60 ml/min/1.73 sqM); Anion Gap 15 mmol/L; Blood Urea Nitrogen 18 mg/dL (9-20); Calcium 9.5 mg/dL (8.4-10.2); Carbon Dioxide 24 mmol/L (22-30); Chloride 102 mmol/L (98-107); Glucose 97 mg/dL (74-99); Non-African American GFR(CKD) >90 (>60 ml/min/1.73 sqM); Sodium 141 mmol/L (137-145)
--- NOTE | 2023-06-14 17:09 | CT ---
EXAMINATION TYPE: CT pelvis w con DATE OF EXAM: 06/14/2023 COMPARISON: 08/13/2018 HISTORY: 48-year-old male pain, groin swelling. Rule out rectal abscess, proctitis TECHNIQUE: Contiguous axial scanning of the pelvis following administration of 100 ml Isovue 300 IV c ontrast. Delayed images through the bladder and coronal/sagittal reconstructions performed. CT DLP: 720.6 mGycm Automated exposure control for dose reduction was used. FINDINGS: Prostate gland mildly enlarged 4.6 cm wide. Bladder is collapsed. Left-sided pelvic phleboliths. Left testicle measures 5.2 x 4.0 x 3.3 cm for a volume of 34.3 mL versus 5.6 x 3.9 x 2.6 cm on the ri ght from volume loss 28.4 mL. These appear to be acceptable. Mild circumferential wall thickening visualized descending and sigmoid colon suspected to be due to n ondistention. No pericolonic inflammatory change. No abnormal fluid collection in the pelvis or pelvi c lymphadenopathy. No perineal or perirectal abscess is seen. Bones: Mild degenerative change of the hips. Moderate degenerative disc disease L5-S1 and mild at L4- L5. IMPRESSION: 1. MILD CIRCUMFERENTIAL WALL THICKENING OF THE VISUALIZED LOWER DESCENDING AND SIGMOID COLON MAY BE D UE TO NONDISTENTION OR A MILD COLITIS. 2. MILD PROSTATOMEGALY OF 4.6 CM WIDE.
[2023-06-14 18:41] VITALS: BP 134/81; PULSE 72; TEMP 98.7
== END 2023-06-14 20:23 | disposition other institution (70) ==
LOC: EC 13:00
DX: K62.89 Other specified diseases of anus and rectum (principal); Z88.0 Allergy status to penicillin
CPT/HCPCS: 36415; 80048; 83605; 85025; 72193; 99284; 96374; 96361; J2270; Q9967

== ENCOUNTER → 2024-04-27 | Outpatient (CLI) | payer OTHER ==
--- NOTE | 2024-04-27 17:11 | MR ---
EXAMINATION TYPE: MR brain wo/w con DATE OF EXAM: 04/27/2024 5:07 PM COMPARISON: None.. CLINICAL INDICATION: Male, 49 years old with history of R51.9 HEADACHE H53.9 VISUAL DISTURBANCE; PHH, Headaches, Vision changes, light sensitivity TECHNIQUE: Multi planar, multi sequence imaging was performed through the brain including: T1, T2, In version recovery, susceptibility weighted imaging and gradient echo imaging and Diffusion weighted im aging. The patient was then given intravenous contrast and multi planar, T1 fat-saturation images wer e obtained. IV Contrast: 9.5 mL Gadobutrol FINDINGS: The cooney-white junctions, ventricular system, basal cisterns appear unremarkable. Diffusion-weighted imaging shows no evidence of restricted diffusion to suggest acute/subacute infarct. Intracranial ar terial flow voids are maintained. Midline structures show no abnormality. Scattered foci of high T2 s ignal intensity are seen within the periventricular white matter. The susceptibility weighted images do not reveal any evidence for micro-hemorrhage. After administration of gadolinium, no abnormal enha ncement is seen. The bone marrow signal is within normal limits. Paranasal sinuses and mastoid air cells: Mild scattered paranasal sinus disease. Visualized orbits: Orbital contents are intact. IMPRESSION: 1. No evidence of intracranial mass, acute/subacute infarct, or abnormal enhancement. 2. Nonspecific white matter changes, likely related to history of migraines, no evidence or active de myelination.. [facility], , 04/27/2024 5:09 PM
== END | disposition home or self-care (01) ==
LOC: RADMRIMAIN 15:52
PROVIDERS: ATTEND Family Medicine
DX: R51.9 Headache, unspecified (principal); H53.9 Unspecified visual disturbance
CPT/HCPCS: 70553; A9585

== ENCOUNTER → 2024-11-17 | Outpatient (CLI) | payer OTHER ==
--- NOTE | 2024-11-17 15:20 | MR ---
EXAMINATION TYPE: MR shoulder LT wo con DATE OF EXAM: 11/17/2024 2:57 PM COMPARISON: Left shoulder x-ray November 08, 2024 CLINICAL INDICATION: Male, 49 years old with history of S46.912A, Left shoulder pain for 9 days due t o lifting injury at work. IV Contrast: cc (None if empty) TECHNIQUE: Multiplanar, multisequence imaging of the left shoulder is performed without contrast. FINDINGS: Rotator Cuff: Intact infraspinatus tendon. Increased signal in the distal supraspinatus tendon. Sligh tly heterogeneous subscapularis tendon. Rotator cuff muscle bulk is preserved. Acromioclavicular Joint: Mild to moderate narrowing and capsular hypertrophy at the acromioclavicular joint. Mild spurring. Loss of underlying fat plane noted. Glenohumeral Joint: Small joint effusion. Narrowing is present. No significant spurring. Labrum: The labrum appears grossly intact given limitation of non-arthrogram study. Biceps Tendon: The long head of biceps is in normal location within bicipital groove. Bone marrow signal: Small 4 mm subchondral cyst anteriorly in the humeral head. Other: No additional significant abnormality is appreciated. IMPRESSION: 1. Mild tendinosis of the subscapularis tendon. Moderate tendinosis of the distal supraspinatus tendo n. 2. [id number] AC joint arthropathy with suggestion of underlying impingement. Correlate clinica lly. 3. No labral tear. [facility], Workstation: 3, 11/17/2024 3:18 PM
== END | disposition home or self-care (01) ==
LOC: RADMRIMAIN 13:34
PROVIDERS: ATTEND Emergency Medicine
DX: S46.912A Strain of unspecified muscle, fascia and tendon at shoulder and upper arm level, left arm, initial encounter (principal); M67.814 Other specified disorders of tendon, left shoulder; M25.812 Other specified joint disorders, left shoulder